=== PATIENT | female | born 1940 | race Two or more races ===

== ENCOUNTER 2017-11-12 14:36 | Emergency (ER) | payer MEDICAID, MEDICARE ==
[~2017-11-12] VITALS: Ht 157.5 cm; Wt 77.1 kg
[~2017-11-12 14:36] MED LIST: ASPI81TA27 PO; Glipizide PO; Hctz PO; METO50TA7 PO; [UNRECOGNIZED DRUG - CODE] PO
[2017-11-12 14:57] VITALS: BP 202/81
[2017-11-13] MEDS ORDERED: IPRATROPIUM BROM 0.5 MG/2.5ML INH SOL ONE (04:04)
[2017-11-13] MEDS ORDERED: ALBUTEROL SULF 2.5 MG/0.5ML(0.5%) NEB SOLN ONE (04:04)
[2017-11-13] MEDS ORDERED: INSLISPI SC (17:57)
[2017-11-13] MEDS ORDERED: AMLO10TA2 PO (17:57)
== END 2017-11-12 19:40 | disposition left against medical advice (07) ==
LOC: ER 14:36 → EDBD 14:36 → ER 19:40
DX: R07.9 Chest pain, unspecified (principal); I10 Essential (primary) hypertension; E11.9 Type 2 diabetes mellitus without complications; E78.5 Hyperlipidemia, unspecified; Z86.73 Personal history of transient ischemic attack (TIA), and cerebral infarction without residual deficits; Z90.49 Acquired absence of other specified parts of digestive tract
CPT/HCPCS: 93005

== ENCOUNTER 2017-11-13 01:20 | Inpatient (IN) | payer MEDICARE ==
[~2017-11-13] VITALS: Ht 154.9 cm; Wt 84.0 kg
[2017-11-13] MEDS ORDERED: ALBUTEROL SULF 2.5 MG/0.5ML(0.5%) NEB SOLN NEB STA (01:48)
[2017-11-13] MEDS ORDERED: IPRATROPIUM BROM 0.5 MG/2.5ML INH SOL NEB ONE ×2 (02:00→04:15)
[2017-11-13 02:09] LABS: Basophils # (auto) 0 uL; Basophils % (auto) 0.5 % (0.0-2.0); Eosinophils # (auto) 0 uL; Hematocrit 38.2 % (36.0-46.0); Hemoglobin 12.7 g/dL (12.2-16.2); Lymphocytes # (auto) 2.4 uL; Lymphocytes % (auto) 35.2 % (10.0-50.0); Mean Corpuscular Hemoglobin 29.4 pg (28.0-32.0); Mean Corpuscular Hgb Conc. 33.4 g/dL (32.0-36.0); Mean Corpuscular Volume 88.1 fL (80.0-100.0); Monocytes # (auto) 0.4 uL; Monocytes % (auto) 6.7 % (0.0-12.0); Neutrophils # (auto) 3.8 uL; Neutrophils % (auto) 57.6 % (37.0-80.0); Nucleated Red Blood Cells % 0.2 %; Platelet Count (auto) 217 10^3/uL (140-450); Red Blood Cells 4.33 10^6/uL (4.0-5.20); Red Cell Distribution Width 13.5 % (11.8-14.3); White Blood Cell 6.7 10^3/uL (4.4-10.8)
[2017-11-13 02:28] LABS: Calcium 8.4 mg/dL (8.5-10.1); Potassium 3.7 mmol/L (3.5-5.1)
[2017-11-13 02:29] LABS: INR 0.92 (0.9-1.15); Partial Thromboplastin Time 26.8 sec (22.64-33.71)
[2017-11-13 02:30] LABS: BUN/Creatinine Ratio 15.7
[2017-11-13 02:38] LABS: Bilirubin, Total 0.3 mg/dL (0.2-1.0); Total Protein 7.5 g/dL (6.4-8.2)
[2017-11-13] MEDS ORDERED: ALBUTEROL SULF 2.5 MG/0.5ML(0.5%) NEB SOLN NEB ONE (04:15)
[2017-11-13] MEDS ORDERED: methylPREDNISolone SOD SUCC 125 MG/2 ML VL IV ONE (05:30)
[2017-11-13] MEDS ORDERED: InsuLIN REG 1unit/0.01ml Soln (100units/ml) IV ONE (05:45)
[2017-11-13] MEDS ORDERED: FUROSEMIDE 20 MG/2 ML VIAL IV ONE ×2 (05:45)
[2017-11-13] MEDS ORDERED: ACETAMINOPHEN 500 MG TAB PO PRN ×2 (06:15→06:30)
[2017-11-13] MEDS ORDERED: NITROGLYCERIN 0.4 MG SL TAB SL PRN (06:15)
[2017-11-13] MEDS ORDERED: MORPHINE SULFATE 4 MG/ML SYR/VIAL IV PRN (06:15)
[2017-11-13] MEDS ORDERED: HYDROcodone-ACET 5/325MG TAB PO PRN ×2 (06:15→06:30)
[2017-11-13] MEDS ORDERED: DEXTROSE (50%) 50ML SYRG IV PRN (06:15)
[2017-11-13] MEDS ORDERED: methylPREDNISolone SOD SUCC 125 MG/2 ML VL IM ONE (06:30)
[2017-11-13] MEDS ORDERED: ONDANSETRON HCL 4 MG/2 ML VIAL IV PRN (06:30)
[2017-11-13] MEDS ORDERED: MORPHINE SULF INJ 2 MG/ML SYRINGE 1ML IV PRN (06:30)
[2017-11-13] MEDS: DOXYCYCLINE HYC 100MG/250ML 250 ML IV SCH ×2 (07:00→18:28)
[2017-11-13] MEDS: IPRATROPIUM BROM 0.5 MG/2.5ML INH SOL NEB SCH ×3 (07:30→17:54)
[2017-11-13] MEDS: ALBUTEROL SULF 2.5 MG/0.5ML(0.5%) NEB SOLN NEB SCH ×3 (07:30→17:54)
[2017-11-13] MEDS: ACCU-CHEK COMFORT CURVE STRIP VI SCH ×4 (07:59→22:37)
[2017-11-13] MEDS: InsuLIN REG 1unit/0.01ml Soln (100units/ml) SC SCH ×4 (08:06→22:37)
[2017-11-13 08:27] LABS: Urine Bacteria NONE SEEN /hpf (None Seen); Urine Blood Negative /uL (Negative); Urine Specific Gravity 1.016 (1.001-1.035); Urine WBC 8 /hpf (0 - 5)
[2017-11-13] MEDS: amLODIPine BESYLATE 5 MG TAB PO SCH (09:34)
[2017-11-13] MEDS: METOPROLOL SUCCINATE XL 50 MG TAB PO SCH (09:34)
[2017-11-13] MEDS: ASPirin-EC 81 mg tab PO SCH (09:34)
[2017-11-13 11:15] VITALS: BP 151/75
[2017-11-13] MEDS ORDERED: FUROSEMIDE 40 MG/4 ML VIAL IV ONE (16:00)
[2017-11-13] MEDS ORDERED: INSLISPI SC (17:57)
[2017-11-13] MEDS ORDERED: AMLO10TA2 PO (17:57)
[2017-11-13 22:00] VITALS: BP 154/46
[2017-11-14] MEDS: IPRATROPIUM BROM 0.5 MG/2.5ML INH SOL NEB SCH ×4 (01:20→18:43)
[2017-11-14] MEDS: ALBUTEROL SULF 2.5 MG/0.5ML(0.5%) NEB SOLN NEB SCH ×4 (01:20→18:44)
[2017-11-14] MEDS: FUROSEMIDE 40 MG/4 ML VIAL IV SCH ×2 (05:01→18:06)
[2017-11-14 05:11] VITALS: BP 171/75
[2017-11-14] MEDS: DOXYCYCLINE HYC 100MG/250ML 250 ML IV SCH ×2 (06:29→18:06)
[2017-11-14] MEDS: InsuLIN REG 1unit/0.01ml Soln (100units/ml) SC SCH ×5 (06:30→22:15)
[2017-11-14] MEDS: ACCU-CHEK COMFORT CURVE STRIP VI SCH ×4 (06:30→22:15)
[2017-11-14 06:38] LABS: Basophils # (auto) 0 uL; Basophils % (auto) 0.2 % (0.0-2.0); Eosinophils # (auto) 0 uL; Hematocrit 40.7 % (36.0-46.0); Hemoglobin 13.1 g/dL (12.2-16.2); Lymphocytes # (auto) 3.8 uL; Lymphocytes % (auto) 31.4 % (10.0-50.0); Mean Corpuscular Hemoglobin 28.5 pg (28.0-32.0); Mean Corpuscular Hgb Conc. 32.2 g/dL (32.0-36.0); Mean Corpuscular Volume 88.5 fL (80.0-100.0); Monocytes # (auto) 0.5 uL; Monocytes % (auto) 4.1 % (0.0-12.0); Neutrophils # (auto) 7.8 uL; Neutrophils % (auto) 64.3 % (37.0-80.0); Nucleated Red Blood Cells % 0.1 %; Platelet Count (auto) 261 10^3/uL (140-450); Red Cell Distribution Width 13.6 % (11.8-14.3); White Blood Cell 12.1 10^3/uL (4.4-10.8)
[2017-11-14 07:00] LABS: BUN/Creatinine Ratio 26.3; Potassium 4.4 mmol/L (3.5-5.1)
[2017-11-14 07:02] LABS: Bilirubin, Total 0.4 mg/dL (0.2-1.0); Total Protein 7.8 g/dL (6.4-8.2)
[2017-11-14] MEDS: amLODIPine BESYLATE 5 MG TAB PO SCH (10:01)
[2017-11-14] MEDS: ASPirin-EC 81 mg tab PO SCH (10:01)
[2017-11-14] MEDS: METOPROLOL SUCCINATE XL 50 MG TAB PO SCH (10:02)
[2017-11-14 13:00] VITALS: BP 109/55
[2017-11-14 16:57] VITALS: BP 144/57
[2017-11-14 23:33] VITALS: BP 151/77
[2017-11-15] MEDS: ALBUTEROL SULF 2.5 MG/0.5ML(0.5%) NEB SOLN NEB SCH ×3 (00:20→12:00)
[2017-11-15] MEDS: IPRATROPIUM BROM 0.5 MG/2.5ML INH SOL NEB SCH ×3 (00:20→12:00)
[2017-11-15 04:41] VITALS: BP 141/57
[2017-11-15 06:32] LABS: Basophils # (auto) 0 uL; Basophils % (auto) 0.1 % (0.0-2.0); Eosinophils # (auto) 0 uL; Eosinophils % (auto) 0.1 % (0.0-7.0); Hemoglobin 11.7 g/dL (12.2-16.2); Lymphocytes # (auto) 4.1 uL; Lymphocytes % (auto) 30.3 % (10.0-50.0); Mean Corpuscular Hemoglobin 28.5 pg (28.0-32.0); Mean Corpuscular Hgb Conc. 32.5 g/dL (32.0-36.0); Mean Corpuscular Volume 87.8 fL (80.0-100.0); Monocytes # (auto) 0.8 uL; Monocytes % (auto) 5.9 % (0.0-12.0); Neutrophils # (auto) 8.6 uL; Neutrophils % (auto) 63.6 % (37.0-80.0); Nucleated Red Blood Cells % 0.1 %; Platelet Count (auto) 249 10^3/uL (140-450); Red Cell Distribution Width 13.3 % (11.8-14.3); White Blood Cell 13.5 10^3/uL (4.4-10.8)
[2017-11-15 06:47] LABS: Albumin 2.7 g/dL (3.4-5.0); BUN/Creatinine Ratio 32.7; Calcium 8.3 mg/dL (8.5-10.1)
[2017-11-15 06:49] LABS: Bilirubin, Total 0.3 mg/dL (0.2-1.0); Total Protein 6.7 g/dL (6.4-8.2)
[2017-11-15] MEDS: ACCU-CHEK COMFORT CURVE STRIP VI SCH ×2 (06:51→11:30)
[2017-11-15] MEDS: DOXYCYCLINE HYC 100MG/250ML 250 ML IV SCH (06:51)
[2017-11-15] MEDS: FUROSEMIDE 40 MG/4 ML VIAL IV SCH (06:51)
[2017-11-15] MEDS: InsuLIN REG 1unit/0.01ml Soln (100units/ml) SC SCH ×2 (08:35→11:30)
[2017-11-15] MEDS: ASPirin-EC 81 mg tab PO SCH (08:36)
[2017-11-15] MEDS: amLODIPine BESYLATE 5 MG TAB PO SCH (08:37)
[2017-11-15] MEDS: METOPROLOL SUCCINATE XL 50 MG TAB PO SCH (08:40)
[2017-11-15 08:44] VITALS: BP 168/58
[2017-11-15 11:14] VITALS: BP 168/58
[2017-11-15 11:52] VITALS: BP 152/57
== END 2017-11-15 13:30 | disposition home or self-care (01) | DRG 280 ==
LOC: EDBD 01:20 → ER 01:32 → TELE 01:33 → TELE-CENTR 14:39
PROVIDERS: ADMIT Nurse Practitioner Family; ATTEND Family Medicine
DX: I11.0 Hypertensive heart disease with heart failure (principal); J18.9 Pneumonia, unspecified organism; I21.4 Non-ST elevation (NSTEMI) myocardial infarction; J44.1 Chronic obstructive pulmonary disease with (acute) exacerbation; J44.0 Chronic obstructive pulmonary disease with (acute) lower respiratory infection; I50.43 Acute on chronic combined systolic (congestive) and diastolic (congestive) heart failure; E11.65 Type 2 diabetes mellitus with hyperglycemia; G30.9 Alzheimer's disease, unspecified; F02.80 Dementia in other diseases classified elsewhere, unspecified severity, without behavioral disturbance, psychotic disturbance, mood disturbance, and anxiety; E78.5 Hyperlipidemia, unspecified; E78.00 Pure hypercholesterolemia, unspecified; N28.9 Disorder of kidney and ureter, unspecified; R79.1 Abnormal coagulation profile; Z79.82 Long term (current) use of aspirin; Z79.84 Long term (current) use of oral hypoglycemic drugs; Z79.899 Other long term (current) drug therapy; Z82.49 Family history of ischemic heart disease and other diseases of the circulatory system; Z86.73 Personal history of transient ischemic attack (TIA), and cerebral infarction without residual deficits; Z90.49 Acquired absence of other specified parts of digestive tract
CPT/HCPCS: 36415; 36600; 71045; 71046; 80053; 81001; 82805; 82962; 83036; 83735; 83880; 84484; 85025; 85379; 85610; 85730; 93005; 93306; 94640; 94761; 96374; 96375; J1815; J3490

== ENCOUNTER 2017-12-07 16:52 | Inpatient (IN) | payer MEDICARE ==
[~2017-12-07] VITALS: Ht 160 cm; Wt 81.3 kg
[~2017-12-07 16:52] MED LIST changes: +AMLO10TA2 PO; +INSLISPI SC
[2017-12-07 17:41] LABS: Basophils # (auto) 0.1 uL; Basophils % (auto) 1.3 % (0.0-2.0); Eosinophils # (auto) 0.5 uL; Eosinophils % (auto) 4.1 % (0.0-7.0); Hematocrit 38.2 % (36.0-46.0); Hemoglobin 12.8 g/dL (12.2-16.2); Lymphocytes # (auto) 4.6 uL; Lymphocytes % (auto) 39.2 % (10.0-50.0); Mean Corpuscular Hemoglobin 29.5 pg (28.0-32.0); Mean Corpuscular Hgb Conc. 33.5 g/dL (32.0-36.0); Mean Corpuscular Volume 88.1 fL (80.0-100.0); Monocytes # (auto) 0.8 uL; Monocytes % (auto) 6.9 % (0.0-12.0); Neutrophils # (auto) 5.7 uL; Neutrophils % (auto) 48.5 % (37.0-80.0); Nucleated Red Blood Cells % 0.2 %; Platelet Count (auto) 277 10^3/uL (140-450); Red Blood Cells 4.33 10^6/uL (4.0-5.20); Red Cell Distribution Width 13.9 % (11.8-14.3); White Blood Cell 11.8 10^3/uL (4.4-10.8)
[2017-12-07] MEDS ORDERED: cefTRIAXone 1GM/10ml IVPUSH 10 ML IV ONE (18:00)
[2017-12-07 18:03] LABS: Alanine Aminotransferase 12 U/L (13-56); Albumin 3.3 g/dL (3.4-5.0); Alkaline Phosphatase 106 U/L (45-117); Anion Gap 8 (5-15); Aspartate Aminotransferase 10 U/L (15-37); BUN/Creatinine Ratio 20.2; Bilirubin, Total 0.5 mg/dL (0.2-1.0); Blood Urea Nitrogen 19 mg/dL (7-18); Carbon Dioxide 26 mmol/L (21-32); Chloride 103 mmol/L (98-107); GFR African American 74 mL/min; GFR Non-African American 62 mL/min; Glucose 130 mg/dL (74-106); Magnesium 2.4 mg/dL (1.6-2.6); Potassium 4.1 mmol/L (3.5-5.1); Sodium 137 mmol/L (136-145); Total Protein 7.8 g/dL (6.4-8.2)
[2017-12-07 19:13] LABS: INR 0.95 (0.9-1.15); Partial Thromboplastin Time 26.1 sec (22.64-33.71); Prothrombin Time 10.3 sec (9.37-12.3)
[2017-12-07] MEDS ORDERED: AZITHROMYCIN 500MG/ 250ML 250 ML IV ONE (21:00)
[2017-12-07] MEDS ORDERED: FUROSEMIDE 20 MG/2 ML VIAL IV ONE (23:00)
[2017-12-07] MEDS ORDERED: methylPREDNISolone SOD SUCC 125 MG/2 ML VL IV ONE (23:00)
[2017-12-07] MEDS ORDERED: ENALAPRIL MALEATE 2.5 MG TAB PO ONE (23:00)
[2017-12-07] MEDS ORDERED: DOCUSATE SOD 100 MG CAP PO PRN (23:00)
[2017-12-07] MEDS ORDERED: MORPHINE SULF INJ 2 MG/ML SYRINGE 1ML IV PRN (23:00)
[2017-12-07] MEDS ORDERED: DEXTROSE (50%) 50ML SYRG IV PRN (23:00)
[2017-12-07] MEDS ORDERED: NITROGLYCERIN 0.4 MG SL TAB SL PRN (23:00)
[2017-12-07] MEDS ORDERED: HYDROcodone-ACET 5/325MG TAB PO PRN (23:00)
[2017-12-07] MEDS ORDERED: TEMAZEPAM 15 MG CAP PO PRN (23:00)
[2017-12-07] MEDS ORDERED: ONDANSETRON HCL 4 MG/2 ML VIAL ONE (23:09)
[2017-12-07] MEDS: ONDANSETRON HCL 4 MG/2 ML VIAL IV PRN (23:26)
[2017-12-08] VITALS (10 sets, daily range): BP systolic 119–171; BP diastolic 47–81
[2017-12-08] MEDS: ACCU-CHEK COMFORT CURVE STRIP VI SCH ×4 (00:29→18:04)
[2017-12-08] MEDS: InsuLIN REG 1unit/0.01ml Soln (100units/ml) SC SCH ×4 (00:29→18:04)
[2017-12-08 06:38] LABS: Basophils # (auto) 0 uL; Basophils % (auto) 0.4 % (0.0-2.0); Eosinophils # (auto) 0 uL; Eosinophils % (auto) 0.1 % (0.0-7.0); Hematocrit 39.2 % (36.0-46.0); Hemoglobin 12.9 g/dL (12.2-16.2); Lymphocytes # (auto) 3.5 uL; Lymphocytes % (auto) 35.3 % (10.0-50.0); Mean Corpuscular Hemoglobin 28.8 pg (28.0-32.0); Mean Corpuscular Volume 87.5 fL (80.0-100.0); Monocytes # (auto) 0.1 uL; Monocytes % (auto) 1.2 % (0.0-12.0); Neutrophils # (auto) 6.3 uL; Nucleated Red Blood Cells % 0.2 %; Platelet Count (auto) 271 10^3/uL (140-450); Red Blood Cells 4.47 10^6/uL (4.0-5.20); Red Cell Distribution Width 13.8 % (11.8-14.3)
[2017-12-08] MEDS: ALBUTEROL SULF 2.5 MG/0.5ML(0.5%) NEB SOLN NEB PRN (06:59)
[2017-12-08] MEDS: IPRATROPIUM BROM 0.5 MG/2.5ML INH SOL NEB PRN (06:59)
[2017-12-08 07:07] LABS: Albumin 3.3 g/dL (3.4-5.0); BUN/Creatinine Ratio 17.5; Bilirubin, Total 0.5 mg/dL (0.2-1.0); Calcium 9.2 mg/dL (8.5-10.1); Potassium 4.3 mmol/L (3.5-5.1)
[2017-12-08] MEDS: HCTZ 25 MG TAB PO SCH (10:04)
[2017-12-08] MEDS: FAMOTIDINE 20 MG TAB PO SCH ×2 (10:04→21:47)
[2017-12-08] MEDS: METOPROLOL SUCCINATE XL 50 MG TAB PO SCH (10:04)
[2017-12-08] MEDS: FUROSEMIDE 20 MG TAB PO SCH (10:05)
[2017-12-08] MEDS: ENOXAPARIN SOD 40 MG/0.4 ML SYRINGE SC SCH (10:05)
[2017-12-08] MEDS ORDERED: LEVOFLOXACIN 500 MG TAB PO ONE (15:00)
[2017-12-08] MEDS ORDERED: MET50T PO (17:28)
[2017-12-08] MEDS ORDERED: CLOP75TA28 PO (17:28)
[2017-12-08] MEDS ORDERED: AMLO5TAB2 PO (17:28)
[2017-12-08] MEDS ORDERED: cloNIDine HCL 0.1 MG TAB PO PRN (17:45)
[2017-12-08] MEDS: ACETAMINOPHEN 325 MG TAB PO PRN (20:19)
[2017-12-08] MEDS ORDERED: AZITHROMYCIN 500MG/ 250ML 250 ML IV SCH (21:00)
[2017-12-08] MEDS ORDERED: cefTRIAXone 1GM/10ml IVPUSH 10 ML IV SCH (21:00)
[2017-12-09 05:58] VITALS: BP 154/67
[2017-12-09] MEDS: InsuLIN REG 1unit/0.01ml Soln (100units/ml) SC SCH ×4 (06:00→17:35)
[2017-12-09] MEDS: ACCU-CHEK COMFORT CURVE STRIP VI SCH ×4 (06:05→17:35)
[2017-12-09 09:00] VITALS: BP 149/54
[2017-12-09] MEDS: ENOXAPARIN SOD 40 MG/0.4 ML SYRINGE SC SCH (10:00)
[2017-12-09] MEDS: METOPROLOL SUCCINATE XL 50 MG TAB PO SCH (10:00)
[2017-12-09] MEDS ORDERED: ADENOSINE 69 MG in GIVE UN-DILUTED 0 ML IV ONE (11:15)
[2017-12-09 13:00] VITALS: BP 163/56
[2017-12-09] MEDS: HCTZ 25 MG TAB PO SCH (13:24)
[2017-12-09] MEDS: LEVOFLOXACIN 500 MG TAB PO SCH (13:25)
[2017-12-09] MEDS: FUROSEMIDE 20 MG TAB PO SCH (13:25)
[2017-12-09] MEDS: FAMOTIDINE 20 MG TAB PO SCH ×2 (13:25→21:50)
[2017-12-09 17:00] VITALS: BP 145/58
[2017-12-09 20:00] VITALS: BP 175/69
[2017-12-09] MEDS: ACETAMINOPHEN 325 MG TAB PO PRN (21:50)
[2017-12-09 22:00] VITALS: BP 137/83
[2017-12-10] MEDS: ACCU-CHEK COMFORT CURVE STRIP VI SCH ×5 (00:22→23:37)
[2017-12-10 05:00] VITALS: BP 171/69
[2017-12-10] MEDS: hydrALAZINE HCL 20 MG/ML VL IV PRN ×2 (05:18→12:12)
[2017-12-10] MEDS: InsuLIN REG 1unit/0.01ml Soln (100units/ml) SC SCH ×5 (05:19→23:35)
[2017-12-10 09:00] VITALS: BP 146/69
[2017-12-10] MEDS: ENOXAPARIN SOD 40 MG/0.4 ML SYRINGE SC SCH ×2 (10:00→15:46)
[2017-12-10] MEDS: METOPROLOL SUCCINATE XL 50 MG TAB PO SCH (10:00)
[2017-12-10] MEDS: ACETAMINOPHEN 325 MG TAB PO PRN (12:13)
[2017-12-10 13:00] VITALS: BP 177/78
[2017-12-10 13:06] VITALS: BP 139/62
[2017-12-10] MEDS: LEVOFLOXACIN 500 MG TAB PO SCH (15:45)
[2017-12-10] MEDS: FAMOTIDINE 20 MG TAB PO SCH ×3 (15:45→21:50)
[2017-12-10] MEDS: FUROSEMIDE 20 MG TAB PO SCH (15:46)
[2017-12-10] MEDS: HCTZ 25 MG TAB PO SCH (15:46)
[2017-12-10] MEDS ORDERED: guaiFENesin-COD 10 ML UD PO PRN (16:30)
[2017-12-10 17:00] VITALS: BP 154/75
[2017-12-10] MEDS ORDERED: guaiFENesin-DM 100/10mg/5ml SYR PO PRN (17:30)
[2017-12-10] MEDS: ONDANSETRON HCL 4 MG/2 ML VIAL IV PRN (19:00)
[2017-12-10 21:30] VITALS: BP 151/84
[2017-12-11] VITALS (7 sets, daily range): BP systolic 144–165; BP diastolic 67–91
[2017-12-11] MEDS: ONDANSETRON HCL 4 MG/2 ML VIAL IV PRN (04:08)
[2017-12-11] MEDS: InsuLIN REG 1unit/0.01ml Soln (100units/ml) SC SCH ×2 (05:18→13:28)
[2017-12-11] MEDS: ACCU-CHEK COMFORT CURVE STRIP VI SCH ×2 (05:18→13:28)
[2017-12-11 05:32] LABS: Basophils # (auto) 0 uL; Basophils % (auto) 0.4 % (0.0-2.0); Eosinophils # (auto) 0.1 uL; Eosinophils % (auto) 0.9 % (0.0-7.0); Hematocrit 41.7 % (36.0-46.0); Hemoglobin 13.6 g/dL (12.2-16.2); Lymphocytes # (auto) 4.7 uL; Lymphocytes % (auto) 40.8 % (10.0-50.0); Mean Corpuscular Hemoglobin 28.6 pg (28.0-32.0); Mean Corpuscular Hgb Conc. 32.5 g/dL (32.0-36.0); Mean Corpuscular Volume 87.9 fL (80.0-100.0); Monocytes # (auto) 0.9 uL; Monocytes % (auto) 7.8 % (0.0-12.0); Neutrophils # (auto) 5.7 uL; Neutrophils % (auto) 50.1 % (37.0-80.0); Nucleated Red Blood Cells % 0.1 %; Platelet Count (auto) 288 10^3/uL (140-450); Red Blood Cells 4.74 10^6/uL (4.0-5.20); Red Cell Distribution Width 13.8 % (11.8-14.3); White Blood Cell 11.5 10^3/uL (4.4-10.8)
[2017-12-11 06:07] LABS: BUN/Creatinine Ratio 18.9; Calcium 9.1 mg/dL (8.5-10.1); Potassium 3.7 mmol/L (3.5-5.1)
[2017-12-11] MEDS: LEVOFLOXACIN 500 MG TAB PO SCH (09:54)
[2017-12-11] MEDS: ENOXAPARIN SOD 40 MG/0.4 ML SYRINGE SC SCH (09:54)
[2017-12-11] MEDS: FAMOTIDINE 20 MG TAB PO SCH (09:54)
[2017-12-11] MEDS: METOPROLOL SUCCINATE XL 50 MG TAB PO SCH (09:55)
[2017-12-11] MEDS: FUROSEMIDE 20 MG TAB PO SCH (09:56)
[2017-12-11] MEDS: HCTZ 25 MG TAB PO SCH (09:56)
[2017-12-11] MEDS: ALBUTEROL SULF 2.5 MG/0.5ML(0.5%) NEB SOLN NEB PRN (11:30)
[2017-12-11] MEDS: IPRATROPIUM BROM 0.5 MG/2.5ML INH SOL NEB PRN (11:30)
[2017-12-12] MEDS ORDERED: SODIUM CHLORIDE 0.9% 1,000 ML IV SCH (07:00)
[2017-12-12] MEDS ORDERED: diphenhdrAMINE HCL 50 MG/1 ML VL IV ONE (09:00)
== END 2017-12-11 18:00 | disposition home health service (06) | DRG 177 ==
LOC: ER 16:52 → TELE 16:53 → TELE-CENTR 23:50 → TELE-EAST 23:56 → TELE-CENTR 12-08 19:35
PROVIDERS: ADMIT Nurse Practitioner; ATTEND Internal Medicine
DX: J69.0 Pneumonitis due to inhalation of food and vomit (principal); I50.43 Acute on chronic combined systolic (congestive) and diastolic (congestive) heart failure; I11.0 Hypertensive heart disease with heart failure; E11.9 Type 2 diabetes mellitus without complications; E66.9 Obesity, unspecified; E78.5 Hyperlipidemia, unspecified; I08.0 Rheumatic disorders of both mitral and aortic valves; E78.00 Pure hypercholesterolemia, unspecified; Z82.49 Family history of ischemic heart disease and other diseases of the circulatory system; Z86.73 Personal history of transient ischemic attack (TIA), and cerebral infarction without residual deficits; Z98.51 Tubal ligation status; Z90.49 Acquired absence of other specified parts of digestive tract; Z88.8 Allergy status to other drugs, medicaments and biological substances; Z88.1 Allergy status to other antibiotic agents; Z79.899 Other long term (current) drug therapy; Z79.82 Long term (current) use of aspirin
CPT/HCPCS: 36415; 71045; 78452; 80048; 80053; 82962; 83605; 83735; 83880; 84484; 85025; 85610; 85730; 87040; 87081; 93005; 93017; 94640; 94761; 96374; 96375; J0153; J1815; J2405